=== PATIENT | male | born 1985 | race Caucasian/White ===

== ENCOUNTER 2016-12-07 20:44 | Inpatient (IN) | payer OTHER ==
--- NOTE | 2016-12-07 22:43 | HP ---
COWS - Scale Resting Pulse: 0= [place] 80 or Below Sweatin=Flushed/Facial Moisture Restless Observation: 3= Extraneous Movement Pupil Size: 1= Pupils >than Normal Bone or Joint Aches: 1= Mild Discomfort Runny Nose/ Eye Tearin= Nasal Congestion GI Upset > 30mins: 0= None Tremor Observation: 1= Tremor [place], Not Seen Yawning Observation: 2= >3x During Session Anxiety or Irritability: 2=Irritable/Anxious Goose Flesh Skin: 3=Piloerection COWS Score: 16 Admission ROS S - HPI Chief Complaint: WITHDRAWAL SYMPTOMS Allergies/Adverse Reactions: Allergies Allergy/AdvReac Type Severity Reaction Status Date / Time No Known Drug Allergies Allergy Verified 09/02/15 18:34 paroxetine HCl [From Paxil] AdvReac Unknown unknown Verified 09/02/15 17:05 History of Present Illness: 31 Y.O. MAN WITH A 4 YEAR HISTORY OF OPIATE DEPENDENCY IS SEEKING DETOX. HE WAS PREVIOUSLY HERE IN 2014. HE REPORTS HE WAS CLEAN FOR 6 MONTHS AND RELAPSED 2 MONTHS AGO. HE WAS PREVIOUSLY IN A [facility]MTP. Exam Limitations: No Limitations - Ebola screening Have you traveled outside of the country in the last 21 days: No (N) Have you had contact with anyone from an Ebola affected area: No Do you have a fever: No - Review of Systems Constitutional: Loss of Appetite, Unintentional Wgt. Loss EENT: reports: Tearing Respiratory: reports: No Symptoms reported Cardiac: reports: No Symptoms Reported GI: reports: Poor Appetite : reports: No Symptoms Reported Musculoskeletal: reports: No Symptoms Reported Integumentary: reports: No Symptoms Reported Neuro: reports: No Symptoms reported Endocrine: reports: No Symptoms Reported Hematology: reports: No Symptoms Reported Psychiatric: reports: Mood/Affect Appropiate Other Systems: Reviewed and Negative Patient History - Patient Medical History Hx Anemia: No Hx Asthma: No Hx Chronic Obstructive Pulmonary Disease (COPD): No Hx Cancer: No Hx Cardiac Disorders: No Hx Congestive Heart Failure: No Hx Hypertension: No Hx Hypercholesterolemia: No HX Cerebrovascular Accident: No Hx Seizures: No Hx Dementia: No Hx Diabetes: No Hx Gastrointestinal Disorders: Yes (GERD ) Hx Liver Disease: No Hx Genitourinary Disorders: No Hx Sexually Transmitted Disorders: No Hx Renal Disease (ESRD): No Hx Thyroid Disease: No Hx Human Immunodeficiency Virus (HIV): No Hx Hepatitis C: No Hx Depression: No Hx Suicide Attempt: No Hx Bipolar Disorder: No Hx Schizophrenia: No - Patient Surgical History Past Surgical History: No Hx Neurologic Surgery: No Hx Cataract Extraction: No Hx Cardiac Surgery: No Hx Lung Surgery: No Hx Breast Surgery: No Hx Breast Biopsy: No Hx Abdominal Surgery: No Hx Appendectomy: No Hx Cholecystectomy: No Hx Genitourinary Surgery: No Hx Section: No Hx Orthopedic Surgery: No Anesthesia Reaction: No - PPD History Previous Implant?: Yes Documented Results: Negative w/proof Implanted On Prior R Admission?: Yes Date: 06/08/15 Results: 0mm PPD to be Administered?: Yes - Reproductive History Patient is a Female of Child Bearing Age (11 -55 yrs old): No - Smoking Cessation Smoking history: Current every day smoker Have you smoked in the past 12 months: Yes Aproximately how many cigarettes per day: 20 Cigars Per Day: 0 Hx Chewing Tobacco Use: No Initiated information on smoking cessation: Yes 'Breaking Loose' booklet given: 12/07/16 - Substance & Tx. History Hx Alcohol Use: No Hx Substance Use: Yes Substance Use Type: Heroin Hx Substance Use Treatment: Yes (DETOX AND REHAB ) - Substances Abused Heroin Route: Injection Frequency: Daily Amount used: 10 BAGS Age of first use: 27 Date of Last Use: 12/07/16 Family Disease History - Family Disease History Family Disease History: Heart Disease: Grandparent ([place]), CA: Father (LEUKEMIA) Admission Physical Exam BHS - Vital Signs Vital Signs: Vital Signs 12/07/16 22:56 Temperature 98.2 F Pulse Rate 59 L Respiratory 20 Rate Blood Pressure 127/59 - Physical General Appearance: Yes: No Apparent Distress, Anxious HEENTM: Yes: Hearing grossly Normal, Normal ENT Inspection, Normocephalic, Normal Voice Respiratory: Yes: Chest Non-Tender, Lungs Clear, Normal Breath Sounds, No Respiratory Distress, No Accessory Muscle Use Neck: Yes: No masses,lesions,Nodules, Trachea in good position Breast: Yes: Breast Exam Deferred Cardiology: Yes: Regular Rhythm, S1, S2 Abdominal: Yes: Flat, Soft Genitourinary: Yes: Other (NO COMPLAINTS REPORTED) Back: Yes: Normal Inspection Musculoskeletal: Yes: full range of Motion, Gait Steady, Pelvis Stable Extremities: Yes: Tremors Neurological: Yes: Alert, Motor Strength 5/5, Normal Mood/Affect, Normal Response Integumentary: Yes: Normal Color, Dry, Warm, [place] Lymphatic: Yes: Within Normal Limits - Diagnostic (1) GERD (gastroesophageal reflux disease) Current Visit: Yes Status: Chronic (2) Nicotine dependence Current Visit: Yes Status: Chronic Qualifiers: Nicotine product type: cigarettes Substance use status: uncomplicated Qualified Code(s): F17.210 - Nicotine dependence, cigarettes, uncomplicated (3) Opioid dependence with withdrawal Current Visit: Yes Status: Chronic Cleared for Admission [facility] - Detox or Rehab [facility] Level of Care: Medically Managed Detox Regimen/Protocol: Methadone [facility] Breath Alcohol Content Breath Alcohol Content: 0 Vital Signs - Vital Signs Vital Signs Refused: No Temperature: 98.2 F Temperature Source: Oral Pulse Rate: 59 Respiratory Rate: 20 Blood Pressure: 127/59 BP Location: Left Arm Blood Pressure Position: Sitting - Height Height: 6 ft - Weight Weight: 168 lb Weight Measurement Method: Standing Scale Body Mass Index (BMI): 22.8 Urine Drug Screen - Test Device Lot Number: [id number] Expiration Date: 07/14/18 - Control Is Test Valid: Yes - Results Drug Screen Negative: No Urine Drug Screen Results: THC-Marijuana, OPI-Opiates, OXY-Oxycodone
[2016-12-07 22:57] VITALS: BMI 22.8
[2016-12-07] MEDS ORDERED: hydrOXYzine PAMOATE 50 MG CAPSULE (FP) PO PRN (23:02)
[2016-12-07] MEDS ORDERED: diphenhydrAMINE HCL 50 MG CAPSULE PO PRN (23:02)
[2016-12-07] MEDS ORDERED: MENTHOL/PHENOL 1 EACH UD MM PRN (23:02)
[2016-12-07] MEDS ORDERED: MAGNESIUM CITRATE 300 ML BOTTLE PO PRN (23:02)
[2016-12-07] MEDS ORDERED: LOPERAMIDE HCL 2 MG CAPSULE PO PRN (23:02)
[2016-12-07] MEDS ORDERED: ACETAMINOPHEN 325 MG TABLET (FP) PO PRN (23:02)
[2016-12-07] MEDS ORDERED: MAGNESIUM HYDROX 2400MG/30ML ORAL SUSPENSION 30 ML CUP PO PRN (23:02)
[2016-12-07] MEDS ORDERED: MAG HYDROX/AL HYDROX/SIMETH 30 ML UNIT-DOSE CUP PO PRN (23:02)
[2016-12-07] MEDS ORDERED: P-EPHED 60MG/TRIPROLIDI 2.5MG TABLET PO PRN (23:02)
[2016-12-07] MEDS ORDERED: IBUPROFEN 400 MG TABLET (FP) PO PRN (23:02)
[2016-12-07] MEDS ORDERED: guaiFENesin/D-METHORPHAN HB 10 ML UNIT-DOSE CUPS PO PRN (23:02)
[2016-12-07] MEDS ORDERED: NICOTINE POLACRILEX 2 MG GUM BUC PRN (23:02)
[2016-12-08] MEDS ORDERED: METHADONE HCL 10 MG TABLET (FOR DETOX USE ONLY) PO ONE ×3 (00:14→23:00)
[2016-12-08] MEDS: diazePAM 5 MG TABLET PO PRN ×2 (02:14→10:22)
[2016-12-08] MEDS ORDERED: PRENATAL VITAMINS W/ FOLIC ACID TABLET (FP) PO SCH (10:00)
[2016-12-08] MEDS ORDERED: RANITIDINE HCL 150 MG TABLET (FP) PO SCH (10:00)
[2016-12-08] MEDS ORDERED: NICOTINE 21 MG/24 HOURS TOPICAL PATCH TD SCH (10:00)
--- NOTE | 2016-12-08 10:15 | CONSULT ---
[facility] Psychiatric Consult - Data Date of interview: 12/08/16 Admission source: [facility] Identifying data: This is 31 years old male with no psychiatric hospitalization history intoxicated with;. Opioids, Cannabis, Nicotine Substance Abuse History: - Smoking Cessation. Smoking history: Current every day smoker. Have you smoked in the past 12 months: Yes. Aproximately how many cigarettes per day: 20. Cigars Per Day: 0. Hx Chewing Tobacco Use: No. Initiated information on smoking cessation: Yes. 'Breaking Loose' booklet given : 12/07/16. - Substance & Tx. History. Hx Alcohol Use: No. Hx Substance Use: Yes. Substance Use Type: Heroin. Hx Substance Use Treatment: Yes (DETOX AND REHAB ). - Substances Abused. Heroin. Route: Injection. Frequency: Daily. Amount used: 10 BAGS. Age of first use: 27. Date of Last Use: 12/07/16 Medical History: GERD Psychiatric History: Patient reports history of OCD, ADHD, Anxiety. Reports no medications taking prior to admission Physical/Sexual Abuse/Trauma History: Denies Additional Comment: Observation. Detox Unit Care Protocol Mental Status Exam - Mental Status Exam Alert and Oriented to: Person Cognitive Function: Fair Patient Appearance: Unkempt Mood: Sad Affect: Flat Patient Behavior: Sedated Speech Pattern: Delayed Voice Loudness: Mildly Soft/Quiet Thought Process: Circumstantial Thought Disorder: Being Controlled Hallucinations: Denies Suicidal Ideation: Denies Homicidal Ideation: Denies Insight/Judgement: Fair Sleep: Difficulty falling asleep Appetite: Fair Muscle strength/Tone: Normal Gait/Station: Shuffling Additional Comments: Observation. Detox Unit Care Protocol Psychiatric Findings - Problem List ([place] 1, 2,3) (1) Nicotine dependence Current Visit: Yes Status: Chronic Qualifiers: Nicotine product type: cigarettes Substance use status: uncomplicated Qualified Code(s): F17.210 - Nicotine dependence, cigarettes, uncomplicated (2) Opioid dependence with withdrawal Current Visit: Yes Status: Chronic (3) ADHD (attention deficit hyperactivity disorder), combined type Current Visit: No Status: Acute (4) Drug-induced mood disorder Current Visit: No Status: Acute (5) Marijuana dependence Current Visit: No Status: Acute (6) OCD (obsessive compulsive disorder) Current Visit: No Status: Acute - Initial Treatment Plan Initial Treatment Plan: Observation. Detox Unit Care Protocol
--- NOTE | 2016-12-08 10:29 | PN ---
[facility] COWS - Scale Resting Pulse: 0= [place] 80 or Below Sweatin=Flushed/Facial Moisture Restless Observation: 1= Difficult to Sit Still Pupil Size: 0= Normal to Room Light Bone or Joint Aches: 2= Severe Diffuse Aches Runny Nose/ Eye Tearin= Runny Nose/Eyes GI Upset > 30mins: 2= Nausea/Diarrhea Tremor Observation of Outstretched Hands: 2= Slight Tremor Visible Yawning Observation: 1= 1-2x During Session Anxiety or Irritability: 2=Irritable/Anxious Goose Flesh Skin: 3=Piloerection COWS Score: 17 BHS Progress Note (SOAP) Subjective: irritable agitation anxiety nausea body aches interrupted sleep Objective: 12/08/16 10:28 Vital Signs Temperature 96 F L 12/08/16 06:47 Pulse Rate 69 12/08/16 06:47 Respiratory Rate 18 12/08/16 06:47 Blood Pressure 126/69 12/08/16 06:47 O2 Sat by Pulse Oximetry (%) labs pending awake/alert ambulating no acute distress Assessment: 12/08/16 10:29 withdrawal sx Plan: continue detox increase fluids labs pending reglan po
[2016-12-08 10:40] VITALS: BP 134/88; PULSE 71; TEMP 98.1
[2016-12-08 10:47] LABS: MCH 30.8 pg (25.7-33.7); MCHC 33.4 g/dl (32.0-35.9); MEAN CELL VOLUME 92.1 fl (80-96); MEAN PLT VOLUME 10.2 fl (7.5-11.1); PLATELET COUNT 192 K/MM3 (134-434); RDW 13.2 % (11.9-15.9); WHITE BLOOD COUNT 3.7 K/mm3 (4.0-10.0)
[2016-12-08 10:53] LABS: ALBUMIN 4.1 g/dl (3.4-5.0); ALK PHOS 60 U/L (45-117); ANION GAP 11 (8-16); BILIRUBIN,TOTAL 0.9 mg/dL (0.2-1.0); CALCIUM 9.1 mg/dL (8.5-10.1); CO2 26 mmol/L (21-32); COCKROFT - GAULT 145.52; CREATININE 0.8 mg/dL (0.7-1.3); GLUCOSE,RANDOM 88 mg/dL (74-106); SGOT/AST 14 U/L (15-37); SGPT/ALT 18 U/L (12-78); TOT PROT 6.9 g/dl (6.4-8.2)
[2016-12-08] MEDS ORDERED: METOCLOPRAMIDE HCL 10 MG TABLET (FP) PO SCH (11:00)
--- NOTE | 2016-12-08 11:22 | PN ---
[facility] Progress Note Note: Pt signed out AMA; pt states he wants to get the "fuck" out of here this place sucks and if I dont get things my way I will do something to people here." Pt was escorted off the unit by security.
--- NOTE | 2016-12-08 11:24 | DS ---
[facility] Detox Discharge Summary Admission Date: 12/07/16 Discharge Date: 12/08/16 - History Present History: Cannabis Dependence, Opioid Dependence - Physical Exam Results Vital Signs: Vital Signs Temperature 98.1 F 12/08/16 10:40 Pulse Rate 71 12/08/16 10:40 Respiratory Rate 18 12/08/16 10:40 Blood Pressure 134/88 12/08/16 10:40 O2 Sat by Pulse Oximetry (%) - Medication Discharge Medications: Ambulatory Orders Pantoprazole Sodium [Protonix -] 40 mg PO HS #30 tablet.ec 09/08/15 - Diagnosis (1) GERD (gastroesophageal reflux disease) Current Visit: Yes Status: Chronic Qualifiers: Esophagitis presence: without esophagitis Qualified Code(s): K21.9 - Gastro-esophageal reflux disease without esophagitis (2) Nicotine dependence Current Visit: Yes Status: Chronic Qualifiers: Nicotine product type: cigarettes Substance use status: uncomplicated Qualified Code(s): F17.210 - Nicotine dependence, cigarettes, uncomplicated (3) Opioid dependence with withdrawal Current Visit: Yes Status: Chronic (4) ADHD (attention deficit hyperactivity disorder), combined type Current Visit: No Status: Acute (5) Drug-induced mood disorder Current Visit: No Status: Acute (6) Marijuana dependence Current Visit: Yes Status: Chronic (7) OCD (obsessive compulsive disorder) Current Visit: No Status: Acute (8) Depression Current Visit: No Status: Suspected - AMA Did Patient Leave Against Medical Advice: Yes
--- NOTE | 2016-12-08 11:51 | EKG ---
Test Reason : Blood Pressure : / mmHG Vent. Rate : 049 BPM Atrial Rate : 049 BPM P-R Int : 120 ms QRS Dur : 096 ms QT Int : 474 ms P-R-T Axes : 048 -25 055 degrees QTc Int : 428 ms SINUS BRADYCARDIA OTHERWISE NORMAL ECG WHEN COMPARED WITH ECG OF 10-JAN-2014 22:33, NO SIGNIFICANT CHANGE WAS FOUND Confirmed by ANNABELLE DORAN MD ([id number]) on 12/08/2016 11:51:02 AM Referred By: Confirmed By:ANNABELLE DORAN MD
[2016-12-08 15:33] LABS: URINE APPEARANCE CLEAR; URINE BILIRUBIN NEGATIVE (NEGATIVE); URINE BLOOD NEGATIVE (NEGATIVE); URINE COLOR LTYELLOW; URINE GLUCOSE (UA) NEGATIVE (NEGATIVE); URINE KETONE 1+ (NEGATIVE); URINE LEUK ESTERASE NEGATIVE (NEGATIVE); URINE NITRITE NEGATIVE (NEGATIVE); URINE PROTEIN NEGATIVE (NEGATIVE); URINE UROBILINOGEN NEGATIVE E.U./dl (0.2-1.0)
[2016-12-08] MEDS ORDERED: THIAMINE HCL 100 MG TABLET (FP) PO SCH (22:00)
[2016-12-09] MEDS ORDERED: METHADONE HCL 10 MG TABLET (FOR DETOX USE ONLY) PO ONE (10:00)
[2016-12-10] MEDS ORDERED: METHADONE HCL 5 MG TABLET (FOR DETOX USE ONLY) PO ONE (10:00)
[2016-12-11] MEDS ORDERED: METHADONE HCL 5 MG TABLET (FOR DETOX USE ONLY) PO ONE (10:00)
[2016-12-12] MEDS ORDERED: METHADONE HCL 10 MG TABLET (FOR DETOX USE ONLY) PO ONE (10:00)
[2016-12-13] MEDS ORDERED: METHADONE HCL 5 MG TABLET (FOR DETOX USE ONLY) PO ONE (06:00)
== END 2016-12-08 11:17 | disposition left against medical advice (07) | DRG 894 ==
LOC: YASAS 20:44 → Y6N 23:56
PROVIDERS: ADMIT Internal Medicine Addiction Medicine; ATTEND Internal Medicine Addiction Medicine
PROC: HZ2ZZZZ Detoxification Services for Substance Abuse Treatment (ICD-10-PCS; principal; 2016-12-07)
DX: F19.230 Other psychoactive substance dependence with withdrawal, uncomplicated (principal); F11.23 Opioid dependence with withdrawal; F12.20 Cannabis dependence, uncomplicated; F17.210 Nicotine dependence, cigarettes, uncomplicated; F90.9 Attention-deficit hyperactivity disorder, unspecified type; F19.24 Other psychoactive substance dependence with psychoactive substance-induced mood disorder; F42.9 Obsessive-compulsive disorder, unspecified; F32.9 Major depressive disorder, single episode, unspecified; K21.9 Gastro-esophageal reflux disease without esophagitis
CPT/HCPCS: 36415; 80053; 81003; 85027; 86593; 93005; 93010

== ENCOUNTER 2017-03-01 17:03 | Emergency (ER) | payer OTHER ==
[2017-03-01 17:08] VITALS: BP 121/70; PULSE 100; TEMP 98; BMI 24.4
--- NOTE | 2017-03-01 17:45 | PDOC ---
History of Present Illness - General Chief Complaint: Penile Drainage Stated Complaint: UTI Time Seen by Provider: 03/01/17 17:45 History Source: Patient Exam Limitations: No Limitations - History of Present Illness Initial Comments: 03/01/17 18:09 Patient is a 31 year old male, no significant medical history currently on no medication presents emergency department for evaluation of penile drip. Patient reports he had a new sexual partner within the last 10 days and did not use protection. Past Medical History: Denies. Allergies: paroxetine Medications: None Family History: Non-contributory Social History: Denies smoking, alcohol use, or IVDU Review of Systems GENERAL/CONSTITUTIONAL: No fever or chills. No weakness. No weight change. HEAD, EYES, EARS, NOSE AND THROAT: No change in vision. No ear pain or discharge. No sore throat. CARDIOVASCULAR: No chest pain or shortness of breath. RESPIRATORY: No cough, wheezing, or hemoptysis. GASTROINTESTINAL: No nausea, vomiting, diarrhea or constipation. No rectal bleeding. GENITOURINARY: No dysuria, frequency, or change in urination. GENITALIA: Penile drip MUSCULOSKELETAL: No joint or muscle swelling or pain. No neck or back pain. SKIN : No rash or easy bruising. NEUROLOGIC: No headache, vertigo, loss of consciousness, or loss of sensation. PSYCHIATRIC: No depression or anxiety. ENDOCRINE: No increased thirst. No abnormal weight change. HEMATOLOGIC/LYMPHATIC: No anemia, easy bleeding, or history of blood clots. ALLERGIC/IMMUNOLOGIC: No hives or skin allergy. No latex allergy. Physical Exam: GENERAL: The patient is awake, alert, and fully oriented, in no acute distress. LUNGS: Breath sounds equal, clear to auscultation bilaterally. No wheezes, and no crackles. HEART: Regular rate and rhythm, normal S1 and S2 without murmur, rub or gallop. ABDOMEN: Soft, nontender, normoactive bowel sounds. No guarding, no rebound. No masses. No bruising or abrasions GENITALIA: White Penile drainage, no lesions, redness or swelling. Circumcised. Scrotum intact good crimisteric reflex. MUSCULOSKELETAL: Normal range of motion, no edema. No clubbing or cyanosis. No cords, erythema, or tenderness. No CVA Tenderness with fist. SKIN: Warm, Dry, normal turgor, no rashes or lesions noted. Past History - Past Medical History Allergies/Adverse Reactions: Allergies Allergy/AdvReac Type Severity Reaction Status Date / Time No Known Drug Allergies Allergy Verified 03/01/17 17:08 paroxetine HCl [From Paxil] AdvReac Unknown unknown Verified 03/01/17 17:08 Home Medications: Ambulatory Orders NK [No Known Home Medication] 03/01/17 Anemia: No Asthma: No Cancer: No Cardiac Disorders: No CVA: No COPD: No CHF: No Dementia: No Diabetes: No GI Disorders: Yes (GERD ) Disorders: No HTN: No Hypercholesterolemia: No Kidney Stones: No Liver Disease: No Suicide Attempt (Hx): No Seizures: No Thyroid Disease: No - Surgical History Abdominal Surgery: No Appendectomy: No Cardiac Surgery: No Cholecystectomy: No Lung Surgery: No Neurologic Surgery: No Orthopedic Surgery: No - Reproductive History Testicular Surgery: No - Immunization History Immunization Up to Date: Yes - Psycho/Social/Smoking Cessation Hx Anxiety: No Suicidal Ideation: No Smoking History: Current every day smoker Have you smoked in the past 12 months: Yes Number of Cigarettes Smoked Daily: 20 Cigars Per Day: 0 Information on smoking cessation initiated: No 'Breaking Loose' booklet given: 12/07/16 Hx Alcohol Use: No Drug/Substance Use Hx: Yes Substance Use Type: Heroin Hx Substance Use Treatment: Yes (DETOX AND REHAB ) Abd/GI Specific PMHX - Complaint Specific PMHX Hepatitis: No Pancreatitis: No *Physical Exam - Vital Signs Last Vital Signs Temp Pulse Resp BP Pulse Ox 98 F 100 H 18 121/70 99 03/01/17 17:04 03/01/17 17:04 03/01/17 17:04 03/01/17 17:04 03/01/17 17:04 Medical Decision Making - Medical Decision Making 03/01/17 18:23 A/P : Patient here for evaluation of penile drip Urine sent for gonorrhea Chlamydia, RPR, HIV Azithromycin 1 g and Rocephin 250 IM Patient awaiting HIV test results 03/01/17 19:03 Laboratory Results - last 24 hr 03/01/17 03/01/17 17:45 17:45 Urine Color Yellow Urine Appearance Clear Urine pH 6.0 Urine Protein Negative Urine Glucose (UA) Negative Urine Ketones Trace H Urine Blood Negative Urine Nitrite Negative Urine Bilirubin Negative Urine Urobilinogen Negative Ur Leukocyte Esterase Trace H HIV 1&2 Antibody Screen Negative HIV P24 Antigen Negative Rapid HIV is negative, urine analysis is negative patient most likely with either gonorrhea or chlamydia. We have treated prophylactically, patient will need to follow-up in one week for official results. I have notified patient that we have treated him for the STD's. He should follow up with PMD as needed. *DC/Admit/Observation/Transfer Diagnosis at time of Disposition: Penile discharge, without blood - Discharge Dispostion Disposition: HOME Condition at time of disposition: Good Admit: No - Patient Instructions Additional Instructions: Please call [phone] in one week for results of test. PLease refrain from sexual activity for at least 2 weeks - Post Discharge Activity Work/School Note: Back to Work
[2017-03-01] MEDS ORDERED: AZITHROMYCIN 1 GM PACKET PO ONE (17:46)
[2017-03-01] MEDS ORDERED: AZITHROMYCIN 1 GM PACKET ONE (18:03)
[2017-03-01 18:44] LABS: URINE APPEARANCE CLEAR; URINE BILIRUBIN NEGATIVE (NEGATIVE); URINE BLOOD NEGATIVE (NEGATIVE); URINE COLOR YELLOW; URINE GLUCOSE (UA) NEGATIVE (NEGATIVE); URINE KETONE TRACE (NEGATIVE); URINE NITRITE NEGATIVE (NEGATIVE); URINE PROTEIN NEGATIVE (NEGATIVE); URINE UROBILINOGEN NEGATIVE mg/dL (0.2-1.0)
[2017-03-01 18:51] LABS: HIV 1 & 2 AB NEGATIVE; HIV 1 AGp24 NEGATIVE
[2017-03-01 18:54] LABS: URINE LEUK ESTERASE TRACE (NEGATIVE)
[2017-03-01 19:48] LABS: URINE MUCUS RARE; URINE RBC 1 /hpf (0-3); URINE WBC 3 /hpf (3-5)
== END 2017-03-01 19:15 | disposition home or self-care (01) ==
LOC: JERFT 17:03
DX: R36.9 Urethral discharge, unspecified (principal)
CPT/HCPCS: 36415; 81003; 81015; 86593; 87086; 87389; 87491; 87591; 96372; 99281-25

== ENCOUNTER 2019-02-25 08:12 | Emergency (ER) | payer OTHER ==
[2019-02-25 08:33] VITALS: BP 154/79; PULSE 87; TEMP 98; BMI 23.7
--- NOTE | 2019-02-25 09:40 | PDOC ---
History of Present Illness - General Chief Complaint: Injury Stated Complaint: FELL Time Seen by Provider: 02/25/19 09:40 History Source: Patient Exam Limitations: No Limitations - History of Present Illness Initial Comments: 02/25/19 10:05 33 yo M pmh opioid dependency p/w right ankle/heel pain s/p fall from second story yesterday AM. 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 Landed on right leg. Endorses difficulty ambulating and swelling of the right ankle, numbness/tingling of foot. Denies head trauma/LOC, chest pain, SOB , or back pain. Denies other pain. pmh as above meds: methadone Allergy to paroxetine 02/25/19 10:41 Past History - Past Medical History Allergies/Adverse Reactions: Allergies Allergy/AdvReac Type Severity Reaction Status Date / Time paroxetine HCl [From Paxil] AdvReac Unknown unknown Verified 02/25/19 08:21 Home Medications: Ambulatory Orders NK [No Known Home Medication] 03/01/17 Anemia: No Asthma: No Cancer: No Cardiac Disorders: No CVA: No COPD: No CHF: No Dementia: No Diabetes: No GI Disorders: Yes (GERD ) Disorders: No HTN: No Hypercholesterolemia: No Kidney Stones: No Liver Disease: No Seizures: No Thyroid Disease: No - Surgical History Abdominal Surgery: No Appendectomy: No Cardiac Surgery: No Cholecystectomy: No Lung Surgery: No Neurologic Surgery: No Orthopedic Surgery: No - Reproductive History Testicular Surgery: No - Immunization History Immunization Up to Date: Yes - Suicide/Smoking/Psychosocial Hx Smoking History: Never smoked Have you smoked in the past 12 months: Yes Number of Cigarettes Smoked Daily: 20 Cigars Per Day: 0 'Breaking Loose' booklet given: 12/07/16 Hx Alcohol Use: No Drug/Substance Use Hx: Yes Substance Use Type: Heroin Hx Substance Use Treatment: Yes (DETOX AND REHAB ) Review of Systems - Review of Systems Able to Perform ROS?: Yes Is the patient limited Armenian proficient: No Constitutional: No: Symptoms Reported, See HPI, Chills, Diaphoresis, Fever, Loss of Appetite, Malaise, Night Sweats, Weakness, Weight Stable, Unintentional Wgt. Loss, Unexplained wgt Loss, Other HEENTM: No: Symptoms Reported, See HPI, Eye Pain, Blurred Vision, Tearing, Recent change in vision, Double Vision, Cataracts, Ear Pain, Ocular Prothesis, Ear Discharge, Nose Pain, Nose Congestion, Tinnitus, Nose Bleeding, Hearing Loss , Throat Pain, Throat Swelling, Mouth Pain, Dental Problems, Difficulty Swallowing, Mouth Swelling, Other Respiratory: No: Symptoms reported, See HPI, Cough, Orthopnea, Shortness of Breath, SOB with Exertion, SOB at Rest, Stridor, Wheezing, Productive cough, Hemoptysis, Other Cardiac (ROS): No: Symptoms Reported, See HPI, Chest Pain, Edema, Irregular Heart Rate, Lightheadedness, Palpitations, Syncope, Chest Tightness, Other ABD/GI: No: Symptoms Reported, See HPI, Abdominal Distended, Abd. Pain w/ defecation, Blood Streaked Bowels, Constipated, Diarrhea, Difficulty Swallowing , Nausea, Poor Appetite, Poor Fluid Intake, Rectal Bleeding, Vomiting, Indigestion, Abdominal cramping, Tarry Stools, Other : No: Symptoms Reported, See HPI, Burning, Dysuria, Discharge, Frequency, Flank Pain, Hematuria, Incontinence, Pain, Urgency, Testicular Mass, Testicular Swelling, Lesions, Testicular Pain, Other Musculoskeletal: No: Back Pain *Physical Exam - Vital Signs Last Vital Signs Temp Pulse Resp BP Pulse Ox 98 F 87 18 154/79 99 02/25/19 08:19 02/25/19 08:19 02/25/19 08:19 02/25/19 08:19 02/25/19 08:19 - Physical Exam Comments: 02/25/19 10:11 MSK: No UE TTP. FROM UE. 2+ distal pulses of b/l LE. Swelling of the right ankle w/o erythema. Right foot: TTP 1st metatarsal and heel. General Appearance: Yes: Nourished, Appropriately Dressed. No: Apparent Distress HEENT: positive: EOMI, [place], Normal Voice, Symmetrical Respiratory/Chest: positive: Lungs Clear, Normal Breath Sounds. negative: Respiratory Distress, Accessory Muscle Use, Crackles, Rales, Stridor, Wheezing Cardiovascular: positive: Regular Rhythm, Regular Rate, S1, S2. negative: Murmur Gastrointestinal/Abdominal: positive: Normal Bowel Sounds, Soft. 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 Ankle/Heel pain - XR right foot and ankle - If calcaneal fx -> jumper series - pain control 02/25/19 13:46 - XR right foot shows calcaneal fracture - Jumper series to eval for other fractures 02/25/19 16:20 - pt has right calcaneal fracture; all other imagines demonstrates no additional fractures. - Orthopedics consulted 02/25/19 16:32 -discussed case with Dr. Whitfield who recommended a posterior splint and follow up in his office tomorrow; does not recommend surgery since fracture is nondisplaced. Dispo: home 02/25/19 16:36 *DC/Admit/Observation/Transfer Diagnosis at time of Disposition: Calcaneal fracture Qualifiers: Encounter type: initial encounter Calcaneus location: unspecified portion of calcaneus Fracture type: closed Fracture alignment: nondisplaced Laterality: right Qualified Code(s): S92.001A - Unspecified fracture of right calcaneus, initial encounter for closed fracture - Discharge Dispostion Disposition: HOME Condition at time of disposition: Improved Decision to Admit order: No - Referrals Referrals: Donald Whitfield MD [Staff Physician] - - Patient Instructions Printed Discharge Instructions: DI for Foot Fracture Additional Instructions: You were seen in the Emergency Department and were found to have a calcaneal fracture on the right foot. Please DO NOT put weight onto the right foot. Please DO NOT get the right foot splint wet. Please take ibuprofen (e.g. motrin) and acetaminophen (e.g. tylenol) for pain. Please follow up with Dr. Whitfield, an orthopedic surgeon, TOMORROW February. Please return to the Emergency Department if you experience any of the following : - fever - chills - increase in pain - any concern symptoms to you - Post Discharge Activity
--- NOTE | 2019-02-25 09:44 | PDOC ---
Attending Attestation - Resident Resident Name: Alistair Garcia - HPI HPI: 02/25/19 12:35 Pt presents to the ED complaining of R foot pain after fall from two stories onto his feet yesterday. States that he has been unable to ambulate since his fall. Denies LOC. States that he is unable to weight bear on his R foot. - Physicial Exam PE: 02/25/19 12:37 Agree with resident exam. PAtient is alert and oriented and in no acute distress. Head: atraumatic. Neck: no point tenderness over spine. CV: rrr no m/r/g Pulm: CTA b/l abdomen: soft, non tender, non distended. LE: full ROM at him and knee, without tenderness or deformity. R foot: + tenderness and swelling over the calcaneous. + mild swelling without tenderness of the mid foot. Neurovascularly intact. - Medical Decision Making 02/25/19 12:40 Pt presents to the ED complaining of R heel pain after fall from 2 stories onto his feet. + calcaneal fx on xray. Will check CT foot and ankle to evaluate for lisfrac fx. Given calcaneal fracture, will do jumper series and xrays of the spine to rule out other injuries.
[2019-02-25] MEDS ORDERED: IBUPROFEN 400 MG TABLET (FP) PO ONE ×2 (11:17→11:41)
[2019-02-25] MEDS ORDERED: morphine CARPU-JECT 2 MG/1 ML DISP.SYRIN IM ONE (17:29)
[2019-02-25] MEDS ORDERED: MORPHINE SULFATE 2 MG/ML VIAL ONE (17:32)
== END 2019-02-25 18:28 | disposition home or self-care (01) ==
LOC: JER 08:12
PROC: 3E023NZ Introduction of Analgesics, Hypnotics, Sedatives into Muscle, Percutaneous Approach (ICD-10-PCS; principal; 2019-02-25)
PROC: 2W3QX1Z Immobilization of Right Lower Leg using Splint (ICD-10-PCS; 2019-02-25)
DX: S92.001A Unspecified fracture of right calcaneus, initial encounter for closed fracture (principal); W11.XXXA Fall on and from ladder, initial encounter; Y93.H3 Activity, building and construction; Y92.69 Other specified industrial and construction area as the place of occurrence of the external cause; Y99.0 Civilian activity done for income or pay
CPT/HCPCS: 29515; 72125-TC; 72128-TC; 72131-TC; 73523-TC-FY; 73552-TC-LT-FY; 73552-TC-RT-FY; 73560-TC-LT-FY; 73560-TC-RT-FY; 73590-TC-LT-FY; 73590-TC-RT-FY; 73610-TC-LT-FY; 73610-TC-RT-FY; 73630-TC-LT; 73630-TC-RT-FY; 73700-TC-RT; 96372; 99282-25

== ENCOUNTER 2021-01-24 08:33 | Inpatient (IN) | payer OTHER ==
[2021-01-24 09:17] VITALS: BMI 22.8
[2021-01-24] MEDS ORDERED: MENTHOL/PHENOL 1 EACH UD MM PRN (09:50)
[2021-01-24] MEDS ORDERED: NICOTINE POLACRILEX 2 MG GUM BUC PRN (09:50)
[2021-01-24] MEDS ORDERED: MAGNESIUM CITRATE 300 ML BOTTLE PO PRN (09:50)
[2021-01-24] MEDS ORDERED: ONDANSETRON *ODT* 4 MG TABLET SL PRN (09:50)
[2021-01-24] MEDS ORDERED: BISMUTH SUBSALICYLATE 524 MG/30 ML PO PRN (09:50)
[2021-01-24] MEDS ORDERED: METHOCARBAMOL 500 MG TABLET PO PRN (09:50)
[2021-01-24] MEDS ORDERED: MAGNESIUM HYDROX 2400MG/30ML ORAL SUSPENSION 30 ML CUP PO PRN (09:50)
[2021-01-24] MEDS ORDERED: ACETAMINOPHEN 325 MG TABLET (FP) PO PRN ×2 (09:50)
[2021-01-24] MEDS ORDERED: IBUPROFEN 400 MG TABLET (FP) PO PRN (09:50)
[2021-01-24] MEDS ORDERED: MAG HYDROX/AL HYDROX/SIMETH 30 ML UNIT-DOSE CUP PO PRN (09:50)
[2021-01-24] MEDS ORDERED: PRENATAL VITAMINS W/ FOLIC ACID TABLET (FP) PO SCH (10:00)
[2021-01-24] MEDS ORDERED: NICOTINE 7 MG/24 HOURS TOPICAL PATCH TD SCH (10:15)
[2021-01-24 10:54] VITALS: TEMP 97.1
[2021-01-24 11:33] LABS: HEMATOCRIT 40.3 % (35.4-49); HEMOGLOBIN 13.9 GM/dL (11.7-16.9); MCH 31.6 pg (25.7-33.7); MCHC 34.5 g/dl (32.0-35.9); MEAN CELL VOLUME 91.6 fl (80-96); MEAN PLT VOLUME 9.7 fl (7.5-11.1); PLATELET COUNT 253 K/MM3 (134-434); RDW 13.7 % (11.9-15.9)
[2021-01-24 11:37] LABS: CALCIUM 9.7 mg/dL (8.5-10.1)
[2021-01-24 11:38] LABS: ALBUMIN 4.4 g/dl (3.4-5.0); BLOOD UREA NITROGEN 14.4 mg/dL (7-18)
[2021-01-24 11:41] LABS: CREATININE 0.8 mg/dL (0.55-1.3)
[2021-01-24 11:42] LABS: BILIRUBIN,TOTAL 0.6 mg/dL (0.2-1); TOT PROT 7.6 g/dl (6.4-8.2)
[2021-01-24] MEDS ORDERED: TUBERCULIN PPD 5 TU/0.1ML VIAL ID ONE (12:03)
[2021-01-24] MEDS: hydrOXYzine PAMOATE 25 MG CAPSULE (FP) PO SCH ×2 (12:10→14:56)
[2021-01-24 13:38] VITALS: BP 125/85; PULSE 58
[2021-01-24] MEDS ORDERED: MASKS NR ONE (13:42)
[2021-01-24] MEDS ORDERED: THIAMINE HCL 100 MG TABLET (FP) PO SCH (22:00)
[2021-01-24] MEDS ORDERED: MELATONIN 5 MG TABLETS PO SCH (22:00)
== END 2021-01-24 15:55 | disposition left against medical advice (07) | DRG 894 ==
LOC: YASAS 08:33 → UNDOADMIN 09:54 → Y3N 09:54
PROVIDERS: ADMIT Allergy & Immunology; ATTEND Allergy & Immunology
PROC: HZ2ZZZZ Detoxification Services for Substance Abuse Treatment (ICD-10-PCS; principal; 2021-01-24)
DX: F11.23 Opioid dependence with withdrawal (principal); F12.20 Cannabis dependence, uncomplicated; F17.210 Nicotine dependence, cigarettes, uncomplicated
CPT/HCPCS: 36415; 80053; 85027; 86780; 93005; 93010; C9803; U0003; U0005